=== PATIENT | female | born 1965 | race Caucasian/White ===

== ENCOUNTER 2016-08-31 18:44 | Emergency (ER) ==
[2016-08-31 18:44] VITALS: BMI 27.4
[2016-08-31 18:53] VITALS: BP 133/74; TEMP 99.6
[2016-08-31 19:20] LABS: BASOPHILS # (AUTO) 0.1 K/uL (0-0.2); BASOPHILS % (AUTO) 0.8 % (0.0-3.0); EOSINOPHILS # (AUTO) 0.2 K/ul (0.0-0.7); EOSINOPHILS % (AUTO) 2.7 % (0.0-7.0); HEMATOCRIT 39.8 % (37.0-47.0); HEMOGLOBIN 13.6 g/dl (12.0-16.0); IMMATURE GRANULOCYTE % (AUTO) 0.1 % (0.0-5.0); LYMPHOCYTES # (AUTO) 3.1 K/uL (0.60-3.4); LYMPHOCYTES % (AUTO) 42.8 (10.0-50.0); MEAN CORPUSCULAR HEMOGLOBIN 31.3 pg (27.0-31.0); MEAN CORPUSCULAR HGB CONC 34.2 (31.8-35.4); MEAN CORPUSCULAR VOLUME 91.7 fl (81.0-99.0); MONOCYTES # (AUTO) 0.5 K/uL (0.4-2.0); MONOCYTES % (AUTO) 7.4 (0-10); NEUTROPHILS # (AUTO) 3.4 K/ul (2.0-6.9); NEUTROPHILS % (AUTO) 46.2; PLATELET COUNT 242 10^3/uL (140-440); RED BLOOD COUNT 4.34 10^6/ul (4.20-5.40); WHITE BLOOD COUNT 7.32 K/ul (4.6-10.2)
[2016-08-31 19:53] LABS: ALANINE AMINOTRANSFERASE 24 U/L (12-78); ALBUMIN 3.9 g/dL (3.4-5.0); ALBUMIN/GLOBULIN RATIO 1.11; ALKALINE PHOSPHATASE 67 U/L (42-98); ANION GAP 16.6; ASPARTATE AMINO TRANSFERASE 23 U/L (15-37); BLOOD UREA NITROGEN 12 mg/dL (7-18); BUN/CREATININE RATIO 14.11; CALCIUM 9.3 mg/dL (8.2-10.2); CARBON DIOXIDE 25 mmol/L (21-32); CHLORIDE 106 mmol/L (98-107); CREATININE 0.85 mg/dL (0.60-1.30); GLUCOSE 100 mg/dL (70-110); POTASSIUM 3.6 mmol/L (3.5-5.10); SODIUM 144 mmol/L (136-145); TOTAL PROTEIN 7.4 g/dL (6.4-8.2)
--- NOTE | 2016-08-31 20:56 | ED.PDOC ---
General ED Provider: Dr. YURI JESUS Chief Complaint: Arrhythmia Stated Complaint: Patient is a 51 year old female who comes to the Er with complaitns of palpitations. That started 20 min ago. She drinks 2 cups of coffee daily. Denies using any diet pills. Estela any Alcohol or drug use. Denies any dizzness with the palpitations. She had a dental proceedure recently and has been on Antibiotics. Came to ER after Noted herself to be in [facility]. Time Seen by Physician: 20:53 Mode of Arrival: Walk-In Information Source: Patient Exam Limitations: No limitations Primary Care Provider: COSME FRANCO Nursing and Triage Documentation Reviewed and Agree: Yes Cardiovascular Complaint Exam - Palpitations Complaint/Exam Onset/Duration: 30 min prior to arrival Symptoms Are: Still present Timing: Intermittent Initial Severity: Moderate Current Severity: Moderate Character: Reports: Skipped beats Aggravating: Reports: None Alleviating: Reports: None Associated Signs and Symptoms: Denies: Lightheadedness, Dizziness, Syncope, Chest pain, Shortness of breath, Diaphoresis, Nausea, Vomiting Related Surgical History: Reports: None Cardiac Risk Factors: Reports: None Pulmonary Embolism Risk Factors: Reports: None Atrial Fibrillation Risk Factors: Reports: None Thyroid Exam: Normal Differential Diagnoses: AV Block, Hypoxia, Hypokalemia Quality Indicators for AMI: EKG in 10min. Quality Indicators for Cardiac Chest Pain: EKG in 10min. Quality Indicator For Non-Traumatic Chest Pain/Syncope: EKG Performed Review of Systems - Review Of Systems Constitutional: Reports: No symptoms Eyes: Reports: No symptoms Ears, Nose, Mouth, Throat: Reports: No symptoms Respiratory: Reports: No symptoms Cardiac: Reports: Palpitations GI: Reports: No symptoms : Reports: No symptoms Musculoskeletal: Reports: No symptoms Skin: Reports: No symptoms Neurological: Reports: Anxiety Endocrine: Reports: No symptoms Hematologic/Lymphatic: Reports: No symptoms All Other Systems: Reviewed and Negative Past Medical History - Past Medical History Endocrine: Reports: None Cardiovascular: Reports: None Respiratory: Reports: None Hematological: Reports: None Gastrointestinal: Reports: None Genitourinary: Reports: None Neuro/Psych: Reports: None Musculoskeletal: Reports: None Cancer: Reports: None Last Menstrual Period: 2 years - Surgical History General Surgical History: Reports: , Cholecystectomy, Tonsillectomy, Orthopedic (ORIF right ankle ), Other (Uterine ablasion ) - Family History Family History: Reports: None - Social History Smoking Status: Never smoker Hx Substance Use: No Alcohol Screening: Occasionally - Immunizations Tetanus Shot up to Date: Yes Physical Exam - Physical Exam Appearance: Well-appearing Eyes: LEANDRO, EOMI, Conjunctiva clear ENT: Ears normal, Nose normal, Oropharynx normal Neck: Supple Respiratory: Airway patent, Breath sounds clear, Breath sounds equal, Respirations nonlabored Cardiovascular: RRR, Pulses normal, No rub, No murmur GI/: Soft, Nontender, No masses, Bowel sounds normal, No Organomegaly Musculoskeletal: Normal strength, ROM intact, No edema, No calf tenderness Skin: Warm, Dry, Normal color Neurological: Sensation intact, Motor intact, Reflexes intact, Cranial nerves intact, Alert, Oriented Psychiatric: Affect appropriate, Mood appropriate Interpretation - University Counselor Time of University Counselor Interpretation: 19:00 Rate: Normal Rhythm: Other (bigeminey) Ectopy: PVCs - EKG Interpretation Time of EKG #1: 19:12 Rate: Normal Rhythm: Sinus Ectopy: PVCs Howe: NL ST Segment: Normal Interpretation: Occasional PVCs Critical Care Note - Critical Care Note Total Time (mins): 15 Course - Course Hematology/Chemistry: 08/31/16 19:10 08/31/16 19:10 Orders, Labs, Meds: Lab Review 08/31/16 19:10 WBC 7.32 RBC 4.34 Hgb 13.6 Hct 39.8 MCV 91.7 MCH 31.3 H MCHC 34.2 RDW Coeff of Raúl 11.9 Plt Count 242 Immature Gran % (Auto) 0.1 Neut % (Auto) 46.2 Lymph % (Auto) 42.8 [place] % (Auto) 7.4 Eos % (Auto) 2.7 Baso % (Auto) 0.8 Immature Gran # (Auto) 0.0 Neut # 3.4 Lymph # 3.1 [place] # 0.5 Eos # 0.2 Baso # 0.1 Sodium 144 Potassium 3.6 Chloride 106 Carbon Dioxide 25 Anion Gap 16.6 BUN 12 Creatinine 0.85 Estimated GFR (MDRD) 71.00 BUN/Creatinine Ratio 14.11 Glucose 100 Calcium 9.3 Magnesium 2.0 Total Bilirubin 0.30 AST 23 ALT 24 Alkaline Phosphatase 67 Troponin I < 0.0100 Total Protein 7.4 Albumin 3.9 Globulin 3.5 Albumin/Globulin Ratio 1.11 Orders Category Date Time Status EKG-(ED ONLY) Stat CARDIO 08/31/16 19:04 Completed CBC W/ AUTO DIFF Stat LAB 08/31/16 19:10 Completed COMPREHENSIVE METABOLIC PANEL Stat LAB 08/31/16 19:10 Completed FREE T4 (FREE THYROXINE) Stat LAB 08/31/16 19:10 Received MAGNESIUM Stat LAB 08/31/16 19:10 Completed THYROID STIMULATING HORMONE Stat LAB 08/31/16 19:10 Received TROPONIN I Stat LAB 08/31/16 19:10 Completed Vital Signs: Temp Pulse Resp BP Pulse Ox 08/31/16 18:46 99.6 F 84 20 133/74 96 DELMIS Risk Score Age >/= 65: No >/= 3 CAD Risk Factors: No Known CAD (Stenosis >/= 50%): No ASA Use in Past 7 Days: No Severe Angina (>/= 2 episodes in 24 hours): No EKG ST Changes >/= 0.5mm: No Postive Cardiac Marker: No DELMIS Total Score: 0 DELMIS Risk Score: Risk Score Odds of by 30D 0 0.1 (0.1-0.2) 1 0.3 (0.2-0.3) 2 0.4 (0.3-0.5) 3 0.7 (0.6-0.9) 4 1.2 (1.0-1.5) 5 2.2 (1.9-2.6) 6 3.0 (2.5-3.6) 7 4.8 (3.8-6.1) Departure - Departure Time of Disposition: 21:02 Disposition: HOME SELF-CARE Discharge Problem: Palpitations, PVCs (premature ventricular contractions) Instructions: Palpitations (ED), Premature Ventricular Contractions (ED) Condition: Stable Pt referred to PMD for follow-up: Yes Additional Instructions: Follow up with you PCP for Cardiology consult and possible Event monitor Avoid Cairene products. Allergies/Adverse Reactions: Allergies aspirin Adverse Reaction (Verified 08/31/16 18:55) Home Medications: Ambulatory Orders Cetirizine HCl [Zyrtec] 10 mg PO DAILY 04/04/14 Ascorbate Calcium [Vitamin C] 500 mg PO DAILY 08/31/16 Bupropion HCl [Wellbutrin Xl] 150 mg PO DAILY 08/31/16 Ranitidine HCl [Zantac] 150 mg PO QDAC PRN 08/31/16 Disposition Discussed With: Patient
== END 2016-08-31 21:22 | disposition home or self-care (01) ==
LOC: ED 18:44
DX: R00.2 Palpitations (principal); I49.3 Ventricular premature depolarization
CPT/HCPCS: 36415; 80053; 83735; 84439; 84443; 84484; 85025; 93005; 93010; 99284